=== PATIENT | female | born 2000 | race Caucasian/White ===

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

== ENCOUNTER 2022-03-04 18:36 | Emergency (ER) | payer OTHER ==
[2022-03-04 19:11] VITALS: BP 106/63; PULSE 94; TEMP 98.3; BMI 29.7
[2022-03-04] MEDS ORDERED: SODIUM CHLORIDE 0.9% 500 ML INFUS.BAG IV ONE (20:10)
[2022-03-04] MEDS ORDERED: cefOXitin SODIUM 1 GM/10 ML PUSH (RESTRICTED TO ID) IVPUSH ONE (20:37)
[2022-03-04] MEDS ORDERED: DOXYCYCLINE INJECTION 100 MG in DEXTROSE 5%-WATER 100 ML IVPB ONE (20:37)
[2022-03-04] MEDS ORDERED: CEFOXITIN SODIUM 2 GM in DEXTROSE 5%-WATER - 100 ML IVPB ONE (20:39)
[2022-03-04] MEDS ORDERED: DOXYCYCLINE HYCLATE 100 MG VIAL ONE (21:09)
[2022-03-04 21:55] LABS: BASO % 0.3 % (0-2.0); EOS % 3.3 % (0-4.5); HEMATOCRIT 40.7 % (32.4-45.2); HEMOGLOBIN 13.4 GM/dL (10.7-15.3); LYMPH % 28.6 % (8-40); MEAN CELL VOLUME 84.8 fl (80-96); MEAN PLT VOLUME 7.5 fl (7.5-11.1); MONO % 4.6 % (3.8-10.2); NEUT % 63.2 % (42.8-82.8); PLATELET COUNT 330 10^3/uL (134-434); RDW 13.7 % (11.6-15.6); WHITE BLOOD COUNT 9.3 K/mm3 (4.0-10.0)
[2022-03-04 21:56] LABS: EPI CELLS 16 /uL (0-25.1); HYALINE CASTS 1 /uL (0-3.1); PH,URINE 6.5 (5.0-8.0); URINE APPEARANCE CLOUDY; URINE BACTERIA 301 /uL (0-1359); URINE BILIRUBIN NEGATIVE (NEGATIVE); URINE COLOR ORANGE; URINE GLUCOSE (UA) NEGATIVE (NEGATIVE); URINE KETONE NEGATIVE (NEGATIVE); URINE LEUK ESTERASE NEGATIVE (NEGATIVE); URINE NITRITE NEGATIVE (NEGATIVE); URINE PROTEIN TRACE (NEGATIVE); URINE RBC 338 /uL (0-23.9); URINE UROBILINOGEN 0.2 mg/dL (0.2-1.0); URINE WBC 7 /uL (0-25.8)
[2022-03-04 22:05] LABS: INR 1.01 (0.83-1.09); PROTHROMBIN TIME (PATIENT) 11.6 SEC (9.7-13.0)
[2022-03-04 22:07] LABS: ACTIVATED PTT 31.6 SECONDS (25.2-36.5)
[2022-03-04 22:08] LABS: BLOOD UREA NITROGEN 12.1 mg/dL (7-18); CALCIUM 9.6 mg/dL (8.5-10.1)
[2022-03-04 22:11] LABS: CREATININE 0.4 mg/dL (0.55-1.3)
[2022-03-04 22:13] LABS: BILIRUBIN,TOTAL 0.5 mg/dL (0.2-1); TOT PROT 7.8 g/dl (6.4-8.2)
[2022-03-05 07:24] LABS: HIV INTERPRETATION NEGATIVE (NEGATIVE)
== END 2022-03-05 00:44 | disposition home or self-care (01) ==
LOC: JER 18:36
PROC: 3E033GC Introduction of Other Therapeutic Substance into Peripheral Vein, Percutaneous Approach (ICD-10-PCS; principal; 2022-03-04)
DX: N93.9 Abnormal uterine and vaginal bleeding, unspecified (principal); Z32.02 Encounter for pregnancy test, result negative
CPT/HCPCS: 36415; 76830-TC; 80053; 81003; 84702; 84703; 85025; 85610; 85730; 86850; 86900; 86901; 87086; 87389; 87491; 87591; 87661; 99284-25

== ENCOUNTER 2022-03-07 13:31 | Emergency (ER) | payer OTHER ==
[2022-03-07 14:03] VITALS: BP 112/56; PULSE 86; TEMP 97.8; BMI 34.7
== END 2022-03-07 16:46 | disposition home or self-care (01) ==
LOC: JERFT 13:31
DX: Z32.01 Encounter for pregnancy test, result positive (principal)
CPT/HCPCS: 36415; 84702; 99283-25

== ENCOUNTER 2022-05-16 20:26 | Emergency (ER) | payer OTHER ==
[2022-05-16 20:32] VITALS: BP 110/74; PULSE 97; RESP 18; TEMP 98.8; BMI 30.2
[2022-05-16 22:32] LABS: BASO % 0.7 % (0-2.0); EOS % 2.7 % (0-4.5); HEMATOCRIT 38.2 % (32.4-45.2); HEMOGLOBIN 12.8 GM/dL (10.7-15.3); LYMPH % 30.3 % (8-40); MCH 27.6 pg (25.7-33.7); MCHC 33.5 g/dl (32.0-36.0); MEAN CELL VOLUME 82.3 fl (80-96); MEAN PLT VOLUME 7.3 fl (7.5-11.1); MONO % 5.5 % (3.8-10.2); NEUT % 60.8 % (42.8-82.8); PLATELET COUNT 276 10^3/uL (134-434); RBC 4.64 M/mm3 (3.60-5.2); RDW 13.4 % (11.6-15.6); WHITE BLOOD COUNT 7.7 K/mm3 (4.0-10.0)
[2022-05-16 23:00] LABS: PH,URINE 5.5 (5.0-8.0); URINE APPEARANCE CLOUDY; URINE BILIRUBIN NEGATIVE (NEGATIVE); URINE COLOR DK YELLOW; URINE GLUCOSE (UA) NEGATIVE (NEGATIVE); URINE KETONE TRACE (NEGATIVE); URINE LEUK ESTERASE NEGATIVE (NEGATIVE); URINE NITRITE NEGATIVE (NEGATIVE); URINE PROTEIN TRACE (NEGATIVE)
[2022-05-16 23:09] LABS: HCG,QUALITATIVE URINE Negative
[2022-05-16 23:46] LABS: CALCIUM 9.1 mg/dL (8.5-10.1)
[2022-05-16 23:47] LABS: BLOOD UREA NITROGEN 10.2 mg/dL (7-18)
[2022-05-16 23:50] LABS: CREATININE 0.6 mg/dL (0.55-1.3)
[2022-05-16 23:51] LABS: TOT PROT 7.8 g/dl (6.4-8.2)
[2022-05-16 23:51] LABS: OPIATES, URI NEGATIVE (NEGATIVE); URINE BARBITURATES NEGATIVE (NEGATIVE)
[2022-05-16 23:52] LABS: BILIRUBIN,TOTAL 0.9 mg/dL (0.2-1)
[2022-05-16 23:52] LABS: PHENCYCLIDINE,URINE NEGATIVE (NEGATIVE)
[2022-05-16 23:56] LABS: COCAINE, UR NEGATIVE (NEGATIVE); METHADONE, UR NEGATIVE (NEGATIVE); URINE AMPHETAMINES NEGATIVE (NEGATIVE); URINE BENZODIAZEPINES NEGATIVE (NEGATIVE)
== END 2022-05-17 00:38 | disposition home or self-care (01) ==
LOC: JER 20:26
DX: F06.1 Catatonic disorder due to known physiological condition (principal); F32.A Depression, unspecified
CPT/HCPCS: 36415; 70450-TC; 80053; 80307; 81003; 82962; 84443; 84703; 85025; 99284-25

== ENCOUNTER 2024-07-13 17:42 | Emergency (ER) | payer OTHER ==
[2024-07-13 17:50] VITALS: BP 116/72; PULSE 81; RESP 20; TEMP 98.4; BMI 30.9
[2024-07-13] MEDS ORDERED: ACETAMINOPHEN INJECTION 100 ML ONE (18:45)
[2024-07-13] MEDS: ACETAMINOPHEN 1000 MG/100 ML BAG IVPB ONE (18:51)
[2024-07-13 19:02] LABS: BASO % 0.6 % (0-2.0); HEMOGLOBIN 13.1 GM/dL (10.7-15.3); LYMPH % 26.5 % (8-40); MCH 30.3 pg (25.7-33.7); MCHC 34.4 g/dl (32.0-36.0); MEAN CELL VOLUME 88.2 fl (80-96); MEAN PLT VOLUME 7.2 fl (7.5-11.1); NEUT % 64.9 % (42.8-82.8); PLATELET COUNT 340 10^3/uL (134-434); RBC 4.31 M/mm3 (3.60-5.2); RDW 12.9 % (11.6-15.6); WHITE BLOOD COUNT 9.7 K/mm3 (4.0-10.0)
[2024-07-13 19:33] LABS: CHLORIDE 105 mmol/L (98-107); POTASSIUM 3.8 mmol/L (3.5-5.1); SODIUM 138 mmol/L (136-145)
[2024-07-13 19:35] LABS: CALCIUM 9.5 mg/dL (8.5-10.1)
[2024-07-13 19:36] LABS: ANION GAP 9 mmol/L (4-13); BLOOD UREA NITROGEN 14.8 mg/dL (7-18); CO2 25 mmol/L (21-32); GLUCOSE,RANDOM 107 mg/dL (74-106)
[2024-07-13 19:39] LABS: CREATININE 0.6 mg/dL (0.55-1.3); SGOT/AST 25 U/L (15-37); SGPT/ALT 62 U/L (13-61)
[2024-07-13 19:40] LABS: BILIRUBIN,TOTAL 0.7 mg/dL (0.2-1); TOT PROT 8.1 g/dl (6.4-8.2)
[2024-07-13 19:42] LABS: ALK PHOS 69 U/L (45-117)
[2024-07-13] MEDS ORDERED: KETOROLAC TROMETHAMINE 30 MG/1 ML VIAL ONE (20:13)
[2024-07-13 20:29] LABS: HIV INTERPRETATION NEGATIVE (NEGATIVE)
[2024-07-13] MEDS: KETOROLAC TROMETHAMINE 30 MG/1 ML VIAL IVPUSH ONE (21:15)
[2024-07-13 23:49] LABS: URINE APPEARANCE YELLOW; URINE BILIRUBIN NEGATIVE (NEGATIVE); URINE COLOR CLEAR; URINE GLUCOSE (UA) NEGATIVE (NEGATIVE); URINE KETONE NEGATIVE (NEGATIVE)
[2024-07-13 23:50] LABS: EPI CELLS 16 /uL (0-25.1); URINE BACTERIA 47.4 /uL (0-1359); URINE LEUK ESTERASE N (NEGATIVE); URINE NITRITE NEGATIVE (NEGATIVE); URINE PROTEIN TRACE (NEGATIVE); URINE RBC 2697.9 /uL (0-23.9)
== END 2024-07-13 23:38 | disposition home or self-care (01) ==
LOC: JER 17:42
PROC: 3E033NZ Introduction of Analgesics, Hypnotics, Sedatives into Peripheral Vein, Percutaneous Approach (ICD-10-PCS; principal; 2024-07-13)
PROC: 3E0333Z Introduction of Anti-inflammatory into Peripheral Vein, Percutaneous Approach (ICD-10-PCS; 2024-07-13)
DX: N93.9 Abnormal uterine and vaginal bleeding, unspecified (principal); R10.30 Lower abdominal pain, unspecified; R53.1 Weakness
CPT/HCPCS: 36415; 76830-TC; 80053; 81003; 84702; 84703; 85025; 86803; 86850; 86900; 86901; 87086; 87389; 99284-25; J0131

== ENCOUNTER 2024-08-20 16:20 | Emergency (ER) | payer OTHER ==
[2024-08-20 16:32] VITALS: BP 119/72; PULSE 79; RESP 18; TEMP 98.6; BMI 28.8
[2024-08-20] MEDS ORDERED: ACETAMINOPHEN 500 MG TABLET (FP) ONE (17:47)
[2024-08-20 17:51] LABS: BASO % 0.7 % (0-2.0); EOS % 3.5 % (0-4.5); HEMATOCRIT 38.3 % (32.4-45.2); LYMPH % 27.8 % (8-40); MCH 30.1 pg (25.7-33.7); MEAN CELL VOLUME 88.7 fl (80-96); MEAN PLT VOLUME 7.4 fl (7.5-11.1); MONO % 5.5 % (3.8-10.2); NEUT % 62.5 % (42.8-82.8); PLATELET COUNT 338 10^3/uL (134-434); RBC 4.32 M/mm3 (3.60-5.2); RDW 12.8 % (11.6-15.6); WHITE BLOOD COUNT 10.7 K/mm3 (4.0-10.0)
[2024-08-20] MEDS: ACETAMINOPHEN 500 MG TABLET (FP) PO ONE (18:07)
[2024-08-20 18:08] LABS: POTASSIUM 3.5 mmol/L (3.5-5.1)
[2024-08-20 18:09] LABS: CALCIUM 9.4 mg/dL (8.5-10.1)
[2024-08-20 18:10] LABS: BLOOD UREA NITROGEN 11.1 mg/dL (7-18)
[2024-08-20 18:13] LABS: CREATININE 0.5 mg/dL (0.55-1.3)
== END 2024-08-20 18:47 | disposition home or self-care (01) ==
LOC: JER 16:20
DX: K59.00 Constipation, unspecified (principal); K64.0 First degree hemorrhoids
CPT/HCPCS: 36415; 80048; 82272; 85025; 86850; 86900; 86901; 99283-25

== ENCOUNTER 2025-01-30 19:29 | Emergency (ER) | payer OTHER ==
[2025-01-30 19:41] VITALS: BP 108/68; PULSE 83; RESP 16; TEMP 98.5; BMI 32.8
[2025-01-30 20:05] LABS: EPI CELLS 19 /uL (0-25.1); HCG,QUALITATIVE URINE Negative; HYALINE CASTS 0 /uL (0-3.1); PH,URINE 6.5 (5.0-8.0); URINE APPEARANCE CLEAR; URINE BACTERIA 336 /uL (0-1359); URINE BILIRUBIN NEGATIVE (NEGATIVE); URINE COLOR YELLOW; URINE GLUCOSE (UA) NEGATIVE (NEGATIVE); URINE KETONE NEGATIVE (NEGATIVE); URINE LEUK ESTERASE 2+ (NEGATIVE); URINE NITRITE NEGATIVE (NEGATIVE); URINE PROTEIN NEGATIVE (NEGATIVE); URINE RBC 30 /uL (0-23.9); URINE UROBILINOGEN 0.2 mg/dL (0.2-1.0); URINE WBC 29 /uL (0-25.8)
[2025-01-30] MEDS ORDERED: ACETAMINOPHEN 325 MG TABLET (FP) ONE (20:06)
[2025-01-30] MEDS: ACETAMINOPHEN 500 MG TABLET (FP) PO ONE (20:24)
[2025-01-30] MEDS ORDERED: cefTRIAXone SODIUM 1 GM VIAL ONE (20:27)
== END 2025-01-30 21:09 | disposition home or self-care (01) ==
LOC: JER 19:29
DX: N89.8 Other specified noninflammatory disorders of vagina (principal); R10.30 Lower abdominal pain, unspecified
CPT/HCPCS: 36415; 81003; 84703; 87491; 87591; 87661; 99284-25